=== PATIENT | female | born 1995 | race Caucasian/White ===

== ENCOUNTER 2018-10-28 23:19 | Inpatient (IN) | payer BC, OTHER ==
[2018-10-29] MEDS ORDERED: ONDANSETRON HCL/PF 4 MG/2 ML VIAL ONE (00:14)
[2018-10-29] MEDS ORDERED: ONDANSETRON HCL/PF 4 MG/2 ML VIAL IVP ONE (00:30)
[2018-10-29] MEDS ORDERED: HYDROMORPHONE INJ 2 MG/ML DISP.SYRIN IV ONE (00:30)
[2018-10-29] MEDS ORDERED: IV NS 0.9% 1,000 ML BAG IV ONE (00:30)
[2018-10-29] MEDS ORDERED: HYDROMORPHONE 1 MG/1 ML DISP.SYRIN ONE (00:41)
[2018-10-29] MEDS ORDERED: DICYCLOMINE HCL 10 MG CAPSULE PO ONE ×2 (02:22→02:30)
[2018-10-29] MEDS ORDERED: HYDROMORPHONE INJ 2 MG/ML DISP.SYRIN ONE (02:28)
[2018-10-29] MEDS ORDERED: HYDROMORPHONE 1 MG/1 ML DISP.SYRIN IV ONE (02:30)
[2018-10-29] MEDS ORDERED: IOHEXOL-300 100 ML VIAL IV ONE (02:42)
[2018-10-29] MEDS ORDERED: Z GUARD REMEDY 2 OZ OINT TP PRN (03:30)
[2018-10-29] MEDS ORDERED: MAG HYDROX/AL HYDROX/SIMETH 30 ML UDC PO PRN (03:30)
[2018-10-29] MEDS ORDERED: PIPERACILLIN /TAZOBACTAM 3.375 G in IV D5W 50 ML IV ONE (03:30)
[2018-10-29] MEDS ORDERED: ACETAMINOPHEN 325 MG TABLET PO PRN (03:30)
[2018-10-29] MEDS ORDERED: ZOLPIDEM TARTRATE 5 MG TABLET PO PRN (03:30)
[2018-10-29] MEDS ORDERED: MAGNESIUM HYDROXIDE 30 ML UDC PO PRN (03:30)
[2018-10-29] MEDS ORDERED: ONDANSETRON HCL/PF 4 MG/2 ML VIAL IVP PRN (03:30)
[2018-10-29] MEDS ORDERED: HYDROCODONE/APAP 5/325MG 1 EACH TABLET PO PRN (03:30)
[2018-10-29] MEDS ORDERED: PIPERACILLIN /TAZOBACTAM 3.375 G VIAL IV ONE (03:55)
[2018-10-29] MEDS ORDERED: PIPERACILLIN /TAZOBACTAM 3.375 G in IV D5W 50 ML IV SCH (06:00)
[2018-10-29] MEDS: MORPHINE SULFATE INJ 2 MG/ML DISP.SYRIN IV PRN ×2 (06:13→10:38)
[2018-10-29] MEDS ORDERED: BISACODYL SUPP (10 MG) 10 MG/SUPP.RECT SUPP.RECT RC ONE (10:15)
[2018-10-29] MEDS: PIPERACILLIN /TAZOBACTAM 3.375 G in IV D5W 100 ML IV SCH ×2 (10:37→17:09)
[2018-10-29] MEDS: IV NS 0.9% 1,000 ML IV SCH (17:09)
[2018-10-29] MEDS ORDERED: ROCURONIUM BROMIDE 50 MG/5 ML ONE (19:54)
[2018-10-29] MEDS ORDERED: FENTANYL PF 100MCG/2ML AMPUL ONE (19:54)
[2018-10-29] MEDS ORDERED: MIDAZOLAM HCL 2 MG/2ML VIAL ONE (19:54)
[2018-10-29] MEDS ORDERED: BUPIVACAINE MPF 0.5% W/EPI INJ 30 ML VIAL ONE (19:59)
[2018-10-29] MEDS ORDERED: LIDOCAINE HCL/MPF 1% 30 ML VIAL IJ ONE (19:59)
[2018-10-30] MEDS: IV NS 0.9% 1,000 ML IV SCH (00:17)
[2018-10-30] MEDS: PIPERACILLIN /TAZOBACTAM 3.375 G in IV D5W 100 ML IV SCH ×3 (01:38→17:50)
[2018-10-30] MEDS ORDERED: IV NS 0.9% 1,000 ML IV PRN (08:19)
[2018-10-30] MEDS: MORPHINE SULFATE INJ 2 MG/ML DISP.SYRIN IV PRN (15:04)
[2018-10-31] MEDS: PIPERACILLIN /TAZOBACTAM 3.375 G in IV D5W 100 ML IV SCH ×2 (01:10→10:12)
== END 2018-10-31 14:30 | disposition home or self-care (01) | DRG 330 ==
DX: K35.80 Unspecified acute appendicitis (principal); K56.7 Ileus, unspecified; K45.0 Other specified abdominal hernia with obstruction, without gangrene; I96 Gangrene, not elsewhere classified; N83.201 Unspecified ovarian cyst, right side; K59.00 Constipation, unspecified; K40.20 Bilateral inguinal hernia, without obstruction or gangrene, not specified as recurrent; D72.829 Elevated white blood cell count, unspecified

== ENCOUNTER 2019-03-22 12:13 | Emergency (ER) | payer BC, OTHER ==
[~2019-03-22] VITALS: Ht 160 cm; Wt 53.5 kg
[2019-03-22 12:22] VITALS: BP 121/53
[2019-03-22] MEDS ORDERED: IBUPROFEN 600 MG TABLET PO ONE ×2 (12:59→13:00)
[2019-03-22] MEDS ORDERED: CYCLOBENZAPRINE 10 MG TABLET ONE (12:59)
[2019-03-22] MEDS ORDERED: CYCLOBENZAPRINE 10 MG TABLET PO ONE (13:00)
== END 2019-03-22 13:39 | disposition home or self-care (01) ==
LOC: ER 12:19
DX: M54.42 Lumbago with sciatica, left side (principal)
CPT/HCPCS: 84703-TC